=== PATIENT | male | born 1960 | race Caucasian/White ===

== ENCOUNTER → 2019-06-02 12:47 | Outpatient (CLI) | payer OTHER, SELFPAY ==
--- NOTE | ~2019-06-02 | US_ITS ---
US retroperitoneal comp 06/02/2019 13:45 Procedure: Realtime transabdominal ultrasound of the kidneys and bladder. Indication: Bilateral flank pain. History of kidney stones. Comparison: No prior studies for comparison. Findings: Renal echotexture is normal bilaterally without contour deforming mass or renal calculus. T he right kidney measures 9.6 cm and left kidney measures 10.4 cm. There is mild right hydronephrosis. Bladder within normal limits. Impression: 1: Mild right hydronephrosis. Reviewed, dictated and finalized at location A. ET EXAMINER Impression: 1: Mild right hydronephrosis.
== END ==
DX: R10.9 Unspecified abdominal pain (principal); N13.30 Unspecified hydronephrosis
CPT/HCPCS: 76770

== ENCOUNTER → 2019-06-10 10:28 | Outpatient (CLI) | payer OTHER, SELFPAY ==
--- NOTE | ~2019-06-10 | MR_ITS ---
EXAMINATION: MR lumbar spine wo con DATE: 06/10/2019 11:38 INDICATION: Left-sided low back pain. TECHNIQUE: Magnetic resonance imaging (MRI) of the lumbar spine was performed without intravenous con trast. Sequences included sagittal T2-weighted FSE, sagittal STIR FSE, sagittal T1-weighted FSE, and axial T2-weighted FSE. COMPARISON: None. FINDINGS: There is 3 mm retrolisthesis of L5 on S1. There is mild chronic anterior wedging of L1 vert ebral body. There are changes of posterior fusion procedure from L4 to S1 with pedicle screws. There are calcifications of the L4-L5 and L5-S1 discs. There is mildly decreased disc height at L1-L2 and L 2-L3. The distal spinal cord signal intensity is normal. The conus medullaris is at L1. The following disc levels are specifically discussed: L1-L2: The disc is bulging. There is mild right and moderate left facet joint osteoarthritis. There i s mild left neural foraminal stenosis. There is mild central canal stenosis. L2-L3: The disc is bulging. There is moderate right and mild left facet joint osteoarthritis. There i s mild bilateral neural foraminal stenosis. There is mild central canal stenosis. L3-L4: The disc does not extend beyond the endplate margin. There is mild bilateral facet joint osteo arthritis. There is no neural foraminal stenosis. There is no central canal stenosis. L4-L5: The disc is mildly bulging. There is no facet joint hypertrophy. There is mild bilateral neura l foraminal stenosis. There is no central canal stenosis. L5-S1: The disc is mildly bulging. There is no facet joint hypertrophy. There is mild right neural fo raminal stenosis. There is no central canal stenosis. IMPRESSION: 1. Mild lumbar spondylosis. 2. Posterior fusion procedure from L4 to S1. Reviewed, dictated and finalized at location A. N TRAWLER HAND
== END ==
DX: Z98.1 Arthrodesis status (principal); M47.896 Other spondylosis, lumbar region
CPT/HCPCS: 72148

== ENCOUNTER 2020-10-17 10:04 | Emergency (ER) | payer OTHER, SELFPAY ==
--- NOTE | ~2020-10-17 | XR_ITS ---
EXAMINATION: XR chest 2V DATE: 10/17/2020 10:50 INDICATION: Cough. TECHNIQUE: Frontal and lateral views of the chest were obtained on 3 radiographs. COMPARISON: Chest 2 views 06/30/2004, chest CT 12/06/2018 FINDINGS: The chest demonstrates clear lungs without pneumonia, pleural effusion, or pneumothorax. Th e heart size is normal. There are changes of anterior fusion procedure at C7-T1. IMPRESSION: 1. No acute cardiopulmonary disease. Reviewed, dictated and finalized at location A.
[2020-10-17 10:23] VITALS: BP 170/71; PULSE 77; RESP 18; TEMP 36.6; O2SAT 98
--- NOTE | 2020-10-17 10:24 | ED.URI ---
HPI - URI/Sore Throat General Chief Complaint: Upper Respiratory Infection Stated Complaint: covid symptoms History of Present Illness HPI Narrative: Patient come in complaining of shortness of breath with weakness and a lot of coughing. Patient complains of feeling tired and this has been going on since Wednesday . Patient has taken vitamin, supplement and he has also taken some cough medicine. Patient states that he called his PCP who wanted him to be tested for COVID and he has a history of pneumonia. Patient states that he has been using his inhaler . denies vomiting, fever, nausea or diarrhea Patient smokes 1 pack a day Related Data Home Medications Medication Instructions Recorded Confirmed albuterol 90 mcg INHALATION PRN PRN 10/17/20 10/17/20 hydrochlorothiazide 12.5 mg PO DAILY 10/17/20 10/17/20 losartan 100 mg PO DAILY 10/17/20 10/17/20 oxycodone-acetaminophen 1 tablet PO DAILY 10/17/20 10/17/20 Allergies Allergy/AdvReac Type Severity Reaction Status Date / Time No Known Allergies Allergy Unknown Verified 10/17/20 10:13 Review of Systems Review of Systems: Narrative: CONSTITUTIONAL reports fever, chills, or sweats. EYES: Denies visual changes, redness, or discharge. ENT: reports rhinorrhea, congestion, sore throat, or otalgia. CARDIOVASCULAR:Denies chest pain, palpitations, or edema. RESPIRATORY: reports cough or dyspnea. GASTROINTESTINAL: Denies abdominal pain, nausea, vomiting, or diarrhea. GENITOURINARY: Denies dysuria or hematuria. SKIN:[Denies rash or itching. MUSCULOSKELETAL:Denies back pain, joint pain, or myalgia. NEUROLOGIC: Denies headache, numbness, or reports weakness. PSYCHIATRIC:Denies anxiety or depression [facility] Family History Family History Father Hypertension Family history of lung cancer Family history of heart disease in male family member before age 55 Other Family history of cardiovascular disease Family history of tuberculosis Social History Social History Alcohol intake: current Gender identity (if verbalized by the patient): Male Comments At time as signature, I have reviewed and agree with nursing past medical, social, surgical and family history. Please see nursing chart for further information. There is no relevant family history pertinent to the presenting complaint. Exam Narrative: Exam Narrative: GENERAL:Well-appearing, well-nourished, and in no acute distress. HEAD:Normocephalic, atraumatic. EYES: PERRLA and EOMI. ENT: Nares yellow secretion noted moderate rhinorrhea or epistaxis. Mucous membranes moist. Pharyngeal erythema with yellow secretions NECK: Supple. CHEST: Clear to auscultation. No respiratory distress. HEART: Regular rate and rhythm. No murmur heard. Normal peripheral pulses. ABDOMEN: Soft, nontender, nondistended, normal active bowel sounds. EXTREMITIES: Normal range of motion. No edema. SKIN: Warm, dry, no rash. NEURO: No focal deficits. Alert and oriented x3. Course PAINTER PLATE/PA Physician Supervision reviewed rapid covid which is negative will send off PCR test for patient REviewd chest xray as well as radiologist No Cardiopulmonary Identified Vital Signs Vital signs: Vital Signs Temperature 97.8 F 10/17/20 10:23 Pulse Rate 77 10/17/20 10:23 Respiratory Rate 18 10/17/20 10:23 Blood Pressure 170/71 H 10/17/20 10:23 Pulse Oximetry 98 10/17/20 10:23 Temperature 97.8 F 10/17/20 10:23 Pulse Rate 72 10/17/20 11:20 Respiratory Rate 18 10/17/20 10:23 Blood Pressure 170/77 H 10/17/20 11:20 Pulse Oximetry 98 10/17/20 10:23 MDM - URI/Sore Throat Differential Diagnosis Differential diagnosis: Likely upper respiratory infection, otitis media, sinusitis, viral infection, bronchitis, influenza and other Lab Data Labs: Lab Results 10/17/20 Range/Units 10:22 POC SARS CoV-2 Ag Negative (Negat
[2020-10-17 11:20] VITALS: BP 170/77; PULSE 72
[2020-10-18 17:20] LABS: SARS-CoV-2 RNA PCR Negative
== END 2020-10-17 11:23 | disposition home or self-care (01) ==
PROVIDERS: Emergency Provider Nurse Practitioner Family
DX: J40 Bronchitis, not specified as acute or chronic (principal); I10 Essential (primary) hypertension; J06.9 Acute upper respiratory infection, unspecified; Z20.822 Contact with and (suspected) exposure to COVID-19
CPT/HCPCS: 71046; 87426; 99213; C9803; G0463; U0003; U0005

== ENCOUNTER → 2021-09-03 10:22 | Outpatient (CLI) | payer OTHER, SELFPAY ==
--- NOTE | ~2021-09-03 | US_ITS ---
EXAMINATION: US carotid duplex BI DATE: 09/03/2021 10:58 INDICATION: Carotid bruit TECHNIQUE: Grayscale, color Doppler, and pulsed Doppler images of the cervical carotid arteries were obtained. The degree of vessel stenosis is placed in one of the following categories: normal, <50%, 5 0-69%, >=70% but less than near-occlusion, near-occlusion, or total occlusion. Note that percent sten osis relative to normal distal artery lumen diameter is indirectly measured from velocity measurement s as described by Jorge L, et al. Radiology 2003; 229:340-346. COMPARISON: 12/06/2018 FINDINGS: RIGHT: The right common carotid artery (CCA) peak systolic velocity (PSV) is 84 cm/s. The right internal car otid artery (ICA) PSV is 106 cm/s. The right ICA end-diastolic velocity (EDV) is 32 cm/s. The right I CA/CCA PSV ratio is 1.3. Grayscale and color Doppler images yield an estimate of <50% diameter reduct ion from plaque in the ICA. The external carotid artery (ECA) PSV is 110 cm/s. There is antegrade laura w in the right vertebral artery. LEFT: The left CCA PSV is 91 cm/s. The left ICA PSV is 136 cm/s. The left ICA EDV is 45 cm/s. The left ICA/ CCA PSV ratio is 1.2. Grayscale and color Doppler images yield an estimate of 50-69% diameter reducti on from plaque in the ICA. The ECA PSV is 106 cm/s. There is antegrade flow in the left vertebral art guanako. IMPRESSION: 1. <50% stenosis in the right internal carotid artery. 2. 50-69% stenosis in the left internal carotid artery. Reviewed, dictated and finalized at location B.
== END ==
DX: R09.89 Other specified symptoms and signs involving the circulatory and respiratory systems (principal); I65.23 Occlusion and stenosis of bilateral carotid arteries
CPT/HCPCS: 93880

== ENCOUNTER → 2021-10-21 10:29 | Outpatient (CLI) | payer OTHER, SELFPAY ==
--- NOTE | ~2021-10-21 | CT_ITS ---
EXAMINATION: CTA brain carotid DATE: 10/21/2021 11:45 INDICATION: Confusion. Dizziness. Neck pain. Stenosis of carotid artery of unspecified laterality. TECHNIQUE: Computed tomographic angiography (CTA) of the head was performed without and with 100 mL O mnipaque-350 intravenous contrast. CTA of the neck was performed with intravenous contrast. Automated exposure control and iterative reconstruction technique were employed. The dose-length product was 1 624.33 mGy-cm. Maximum intensity projection and volume rendered 3D-reconstructions were created by maninder muir technologist on a separate workstation. COMPARISON: Ultrasound 09/03/2021 FINDINGS: HEAD CTA: There is no intracranial hemorrhage, acute infarction, or abnormal intracranial mass lesion . The ventricles are normal in size. Vertebral body heights are normal. There is mucosal thickening i n the paranasal sinuses. The mastoid air cells are normal. The orbits are normal. The vertebral arter ies are codominant. There is no significant stenosis of basilar artery or the posterior cerebral rubio melinda. There is no significant stenosis of the intracranial internal carotid arteries or anterior or m iddle cerebral arteries. Anterior communicating artery is normal. The posterior communicating arterie s are normal. There is no aneurysm. NECK CTA: There is mild scarring at the lung apices. There is no significant stenosis of the vertebra l arteries. There is plaque in the proximal internal carotid arteries. There is 5% stenosis of the pr oximal right internal carotid artery relative to normal distal artery lumen diameter (NASCET criteria ). There is 26% stenosis of the proximal left internal carotid artery relative to normal distal arter y lumen diameter. There is moderate cervical spondylosis. There are changes of anterior fusion proced ure from C6 to T1. IMPRESSION: 1. Normal brain. No aneurysm or significant intracranial arterial stenosis. 2. 5% stenosis of the proximal right internal carotid artery relative to normal distal artery lumen d iameter (NASCET criteria). 3. 26% stenosis of the proximal left internal carotid artery relative to normal distal artery lumen d iameter. Reviewed, dictated and finalized at location A. IMPRESSION: 1. Normal brain. No aneurysm or significant intracranial arterial stenosis. 2. 5% stenosis of the proximal right internal carotid artery relative to normal distal artery lumen diameter (NASCET criteria). 3. 26% stenosis of the proximal left internal carotid artery relative to normal distal artery lumen diameter.
[2021-10-21 10:56] LABS: Estimated Glomerular Filt Rate 56
== END ==
DX: R41.0 Disorientation, unspecified (principal); R29.898 Other symptoms and signs involving the musculoskeletal system; I65.23 Occlusion and stenosis of bilateral carotid arteries
CPT/HCPCS: 70496; 70498; Q9967

== ENCOUNTER 2022-03-26 12:30 | Outpatient (CLI) | payer OTHER, SELFPAY ==
--- NOTE | 2022-03-26 | ECHO_ITS ---
Patient Info Name: Navi Palomino Age: 61 years : 1960 Gender: Male Ht: 73 in Wt: 160 lbs BSA: 1.93 m2 HR: 83 bpm BP: 166 / 82 mmHg Heart Rhythm: Sinus Rhythm Technical Quality: Fair Exam Date: 03/26/2022 1:08 PM [facility] Patient Status: Outpatient Admit Date: 03/26/2022 Staff Ordering Physician: Omer Ayon MD Education Spec: Shama Gordon RCS Attending Provider: Omer Ayon MD Referring Physician: Omer Ayon MD; Exam Type: CA echo doppler color flow Study Info Indications - MURMUR JARED Complete two-dimensional, color flow and Doppler transthoracic echocardiogram is performed. Summary 1. Complete two-dimensional, color flow and Doppler transthoracic echocardiogram is performed. 2. Left ventricular chamber dimension is normal. 3. Left ventricular systolic function is normal, estimated at 65-70%. 4. Right ventricular systolic function is normal. 5. There is severe aortic valve calcification. 6. The aortic valve appears to be trileaflet. There is restricted motion of the left coronary cusp of the aortic valve. 7. There is an echogenic mass attached to the ventricular side of the aortic valve. Mass measures 1.0cm by 0.6cm. Mass does not appear to have independent motion. 8. There is mild to moderate aortic valve stenosis with a peak velocity of 248 cm/s, mean gradient of 14 mmHg, and aortic valve area of 1.3 cm2. 9. There is mild aortic valve regurgitation. 10. The mitral valve annulus is mildly calcified. 11. There is mild mitral valve regurgitation. Left Ventricle Left ventricular chamber dimension is normal. Left ventricular systolic function is normal, estimated at 65-70%. There is no increased left ventricular wall thickness. Right Ventricle Right ventricular chamber dimension is normal. Right ventricular systolic function is normal. Left Atria Left atrial chamber dimension is normal. Right Atria Right atrial chamber dimension is normal. Atrial Septum Intact interatrial septum visualized by color flow imaging. Aortic Valve There is an echogenic mass attached to the ventricular side of the aortic valve. Mass measures 1.0cm by 0.6cm. Mass does not appear to have independent motion. The aortic valve appears to be trileaflet. There is restricted motion of the left coronary cusp of the aortic valve. There is mild to moderate aortic valve stenosis with a peak velocity of 248 cm/s, mean gradient of 14 mmHg, and aortic valve area of 1.3 cm2. There is mild aortic valve regurgitation. There is severe aortic valve calcification. Pulmonic Valve The pulmonic valve is not well visualized. There is trace pulmonic regurgitation. Mitral Valve The mitral valve has normal leaflets. There is no mitral valve stenosis. There is mild mitral valve regurgitation. The mitral valve annulus is mildly calcified. Tricuspid Valve The tricuspid valve leaflets are normal. There is no significant tricuspid valve stenosis. There is trace tricuspid valve regurgitation. Pericardium/Pleural There is no pericardial effusion. Inferior Vena Cava Dilated inferior vena cava with >50% collapse upon inspiration consistent with elevated right atrial pressure. Aorta The aortic root size at the sinus of Valsalva is not well visualized. Left Ventricular Outflow Tract Name Value Normal
== END 2022-03-26 12:31 | disposition home or self-care (01) ==
LOC: ANHCARD 12:43
DX: R60.0 Localized edema (principal); R01.1 Cardiac murmur, unspecified; I34.0 Nonrheumatic mitral (valve) insufficiency; I35.1 Nonrheumatic aortic (valve) insufficiency
CPT/HCPCS: 93306

== ENCOUNTER 2022-10-07 11:00 | Outpatient (RCR) | payer OTHER, SELFPAY | END 2022-10-07 14:03 | disposition home or self-care (01) | LOC: ANHCPREHAB 11:00 | DX: Z95.2 Presence of prosthetic heart valve (principal) | CPT/HCPCS: 93798 ==

== ENCOUNTER → 2022-11-04 10:46 | Outpatient (CLI) | payer OTHER, SELFPAY ==
--- NOTE | ~2022-11-04 | US_ITS ---
US renal BI 11/04/2022 11:13 Procedure: Realtime transabdominal ultrasound of the kidneys and bladder. Indication: Elevated serum creatinine Comparison: 06/02/2019 Findings: Renal echotexture is normal bilaterally without hydronephrosis, contour deforming mass or r enal calculus. There are small bilateral renal cysts measuring up to 7 mm on the right and 8 mm on th e left. The right kidney measures 11.1 cm and left kidney measures 11.7 cm. Bladder wall is mildly th ickened. Prostate gland is enlarged. Impression: 1: Mildly thickened bladder wall possibly secondary to outlet obstruction from prominent prostate gla nd. Cystitis less favored. Reviewed, dictated and finalized at location A. Impression: 1: Mildly thickened bladder wall possibly secondary to outlet obstruction from prominent prostate gland. Cystitis less favored.
== END ==
DX: R79.89 Other specified abnormal findings of blood chemistry (principal); N32.9 Bladder disorder, unspecified
CPT/HCPCS: 76775

== ENCOUNTER → 2023-02-16 13:00 | Outpatient (CLI) | payer OTHER, SELFPAY ==
--- NOTE | ~2023-02-16 | XR_ITS ---
Supine and upright views of the abdomen Clinical history: Left flank pain COMPARISON: 07/04/2018 Findings: Bowel gas pattern is nonspecific. No evidence for obstruction or free air. No abnormal mass lesion or calcification is seen.: Cholecystectomy clips are present. Stable lumbosacral spinal fixat ion hardware. Impression: No acute abnormality. No renal stone evident. Reviewed, dictated and finalized at location . HROOM SUPERVISOR Impression: No acute abnormality. No renal stone evident.
--- NOTE | ~2023-02-16 | CT_ITS ---
EXAMINATION: CT abdomen pelvis wo con DATE: 02/16/2023 13:40 INDICATION: Left flank pain TECHNIQUE: Computed tomography (CT) of the abdomen and pelvis was performed without intravenous contr ast. The dose-length product (DLP) was 285.98 mGy-cm. Automated exposure control and iterative recons truction technique were employed. COMPARISON: 07/04/2018 FINDINGS: There is chronic atelectasis or scarring of the right middle lobe. Calcified lymph nodes ad jacent to the distal esophagus consistent with old granulomatous disease. Changes of cholecystectomy are noted. Punctate calcifications in an otherwise normal spleen likely represent healed granulomatou s disease. The liver, pancreas, gallbladder, and adrenal glands are normal. There are punctate nonobs tructing stones of the kidneys. No stones are present in the ureters or bladder. No hydronephrosis or hydroureter. There is calcified atherosclerosis of the aorta and many of the other arteries. No path ologically enlarged abdominal or pelvic lymph nodes are identified. There are changes of posterior fu ruth from L4 through S1. IMPRESSION: 1. No CT correlate for the patient's symptoms. Nonobstructing bilateral nephrolithiasis. Reviewed, dictated and finalized at location L. ES 1 THROUGH 5 TEACHER IMPRESSION: 1. No CT correlate for the patient's symptoms. Nonobstructing bilateral nephrol ithiasis.
== END ==
PROVIDERS: Visit Provider Urology
DX: N20.0 Calculus of kidney (principal); G89.29 Other chronic pain; R29.898 Other symptoms and signs involving the musculoskeletal system
CPT/HCPCS: 74018; 74176

== ENCOUNTER → 2023-02-16 13:04 | Outpatient (CLI) | payer OTHER, SELFPAY ==
--- NOTE | ~2023-02-16 | XR_ITS ---
AP and lateral views of the right hip Clinical history: Pain Findings: No acute fracture or dislocation is seen. Osseous alignment is anatomic. Bilateral hip and SI joint spaces are preserved. Soft tissues are unremarkable. Impression: No significant abnormality is seen. Reviewed, dictated and finalized at location M. NOSE THROAT SURGEON Impression: No significant abnormality is seen.
--- NOTE | ~2023-02-16 | XR_ITS ---
Lumbosacral Spine: AP and lateral views Clinical History: Pain Findings: No fracture or subluxation seen. There is posterior fusion extending from L4 through S1 wit h bilateral rods and transpedicular screws present. There is moderate degenerative disc narrowing at L1-L2 and L2-L3. The sacroiliac joints are normally outlined. Impression: Posterior fusion from L4 through S1. Moderate degenerative disc narrowing at L1-L2 and L2-L3. No fracture or subluxation. Reviewed, dictated and finalized at location M. CH TUTOR Impression: Posterior fusion from L4 through S1. Moderate degenerative disc narrowing at L1-L2 and L2-L3. No fracture or subluxation.
== END ==
DX: M43.27 Fusion of spine, lumbosacral region (principal); M51.36 Other intervertebral disc degeneration, lumbar region; M62.81 Muscle weakness (generalized); R29.898 Other symptoms and signs involving the musculoskeletal system; G89.29 Other chronic pain
CPT/HCPCS: 72100; 73502

== ENCOUNTER 2024-05-17 10:23 | Outpatient (CLI) | payer OTHER, SELFPAY ==
--- NOTE | ~2024-05-17 | XR_ITS ---
EXAMINATION: XR abdomen/kub 1V DATE: 05/17/2024 10:50 INDICATION: Constipation. Left abdominal pain. TECHNIQUE: A supine view of the abdomen on 2 radiographs was obtained. COMPARISON: CT abdomen and pelvis 02/16/2023 FINDINGS: There are no dilated loops of bowel. There is a moderate volume of stool in the colon. Surg ical clips in the right upper quadrant are likely from cholecystectomy. There are changes of posterio r fusion procedure from L4 to S1. IMPRESSION: 1. Normal bowel gas pattern. Reviewed, dictated and finalized at location A. BRIDGE OPERATOR
== END 2024-05-17 10:24 | disposition home or self-care (01) ==
DX: K59.00 Constipation, unspecified (principal)
CPT/HCPCS: 74018

== ENCOUNTER 2025-02-26 13:07 | Outpatient (CLI) | payer OTHER, SELFPAY ==
--- NOTE | ~2025-02-26 | CT_ITS ---
EXAMINATION: CT abdomen pelvis w con DATE: 02/26/2025 13:39 INDICATION: Left-sided abdominal pain radiating to the back. Possible diverticulitis. TECHNIQUE: Computed tomography (CT) of the abdomen and pelvis was performed 100 cc of Omnipaque 350 and have reviewed and multiple projections. intravenous contrast. Automated exposure control and iterative reconstruction technique were employed. The dose-length product was 527.84 mGy-cm. COMPARISON: Previous images not available for comparison. FINDINGS: The lung bases do not show acute findings. No focal lesions of the liver and spleen. The gallbladder is absent. Pancreas shows no acute findings. No calculi are seen in the urinary tract. Mildly prominent pelvicalyceal system and ureter on both sides are noted without calculi. No retroperitoneal adenopathy. Significant calcific changes of aorta and iliac arteries. Postoperative changes of the lumbar spine. No CT evidence of diverticulitis in the pelvis. Again diffuse thecal impaction of the colon is noted. Evidence of significant enlargement of the prostate. Bilateral inguinal hernia containing omental fat. No free fluid, no free air IMPRESSION: 1. No CT evidence of diverticulitis in the pelvis. Intravenous fecal impaction of the colon. 2. Enlarged prostate gland. Bilateral inguinal hernia containing omental fat. 3. Postoperative changes of lumbar spine and degenerative disc disease. 4. Significant calcific atherosclerotic changes of distal abdominal aorta, iliac arteries, proximal renal arteries. Reviewed, dictated and finalized at location T. COOK IMPRESSION: 1. No CT evidence of diverticulitis in the pelvis. Intravenous fecal impaction of the colon. 2. Enlarged prostate gland. Bilateral inguinal hernia containing omental fat. 3. Postoperative changes of lumbar spine and degenerative disc disease. 4. Significant calcific atherosclerotic changes of distal abdominal aorta, fermin c arteries, proximal renal arteries.
[2025-02-26 13:29] LABS: Estimated Glomerular Filt Rate 44
== END 2025-02-26 13:08 | disposition home or self-care (01) ==
LOC: MICIMG 13:07
DX: K57.92 Diverticulitis of intestine, part unspecified, without perforation or abscess without bleeding (principal)
CPT/HCPCS: 74177; Q9967